=== PATIENT | female | born 1955 | race Caucasian/White ===

== ENCOUNTER 2022-01-14 11:19 | Emergency (ER) | payer BC ==
--- OUTSIDE RECORDS SUMMARY | 2022-01-14 11:24 | XMS REPORT | Continuity of Care Document ---
:1955 Author Organization [facility] t Address [address] [place] [address] Care Team Providers Name Role Phone Dunia WALKER Primary Care Physician Unavailable NAVEEN Attending Clinician Unavailable JHON BENDER Attending Clinician Unavailable Only, Cbc Test Attending Clinician Unavailable Jhon Bender DO Attending Clinician RADIOLOGY Attending Clinician Unavailable Radiology Attending Clinician Unavailable Lab, Fam Pob I Attending Clinician Unavailable Campos MARTINI Attending Clinician CAMPOS Attending Clinician Unavailable Doctor Unassigned, Name Attending Clinician Unavailable KATH TRISTAN Admitting Clinician Unavailable Payers Payer Name Policy Type Policy Number Effective Date Expiration Date S lam[place] [facility] [id number] 2021 00:00:00 [facility] [id number] 2013 00:00:00 Problems Condition Condition Condition Status Onset Resolution Last Treating Co mments Source Name Details Category Date Date Treatment Clinician Date 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 3-06 Health both lower both lower 00:00: extremitie extremitie 00 s with s with inflammati inflammati on on Left Left Disease Active 2014-10 Univers shoulder shoulder 0-07 ity of pain pain 00:00: [place] 00 Medical Branch Allergies, Adverse Reactions, Alerts Allergy Allergy Status Severity Reaction(s) Onset Inactive Treating Comm ents Source Name Type Date Date Clinician NO KNOWN Drug Active Univers ALLERGIE Class [facility] of [facility] [place] [facility] Social History Social Habit Start Date Stop Date Quantity Comments Source Exposure to Yes [facility] SARS-CoV-2 (event) Medica l Branch Alcohol intake 2021-10-06 2021-10-06 0 /d [facility] 00:00:00 00:00:00 Medical Branch Tobacco use and 2015-07-15 2015-07-15 Never used [facility] exposure 00:00:00 00:00:00 Medical Branch Sex [birth year] [place] [facility] 00:00:00 00:00:00 Smoking Status Start Date Stop Date Source Tobacco smoking consumption IN H ealt unknown Never smoker [facility] Branch Medications Ordered Filled Start Stop Current Ordering Indication Dosage Frequency Signature Comments Components Source Medication Medication Date Date Medication? Clinician (SIG) Name Name diclofenac 2018-0 Yes 75mg Take 1 Unive rs 75 mg EC 9-06 tablet by ity of tablet 00:00: mouth [place] ([facility]) Medical times Branch daily with meals. diclofenac 2018-0 Yes 75mg Take 1 Unive rs 75 mg EC 9-06 tablet by ity of tablet 00:00: mouth [place] ([facility]) Medical times Branch daily with meals. diclofenac 2018-0 Yes 75mg Take 1 Unive rs 75 mg EC 9-06 tablet by ity of tablet 00:00: mouth [place] ([facility]) Medical times Branch daily with meals. diclofenac 2018-0 Yes 75mg Take 1 Unive rs 75 mg EC 9-06 tablet by ity of tablet 00:00: mouth [place] (two) Medical times Branch daily with meals. diclofenac 2018-0 Yes 75mg Take 1 Unive rs 75 mg EC 9-06 tablet by ity of tablet 00:00: mouth 2 [place] (two) Medical times Branch daily with meals. diclofenac 2018-0 Yes 75mg Take 1 Unive rs 75 mg EC 9-06 tablet by ity of tablet 00:00: mouth 2 [place] (two) Medical times Branch daily with meals. diclofenac 2018-0 Yes 75mg Take 1 Unive rs 75 mg EC 9-06 tablet by ity of tablet 00:00: mouth 2 [place] (two) Medical times Branch daily with meals. diclofenac 2018-0 Yes 75mg Take 1 Unive rs 75 mg EC 06-14 tablet by ity of tablet 00:00: mouth 2 [place] 00 (two) Medical times Branch daily with meals. Estradiol-N Yes 1{tbl} Take 1 Un claude orethindron 3-28 tablet by ity of e Acet 00:00: mouth [place] 0.5-0.1 mg 00 daily. Medical tablet Branch Estradiol-N Yes 1{tbl} Take 1 Un claude orethindron 3-28 tablet by ity of e Acet 00:00: mouth [place] 0.5-0.1 mg 00 daily. Medical tablet Branch Estradiol-N Yes 1{tbl} Take 1 Un claude orethindron 3-28 tablet by ity of e Acet 00:00: mouth [place] 0.5-0.1 mg 00 daily. Medical tablet Branch Estradiol-N Yes 1{tbl} Take 1 Un claude orethindron 3-28 tablet by ity of e Acet 00:00: mouth [place] 0.5-0.1 mg 00 daily. Medical tablet Branch Estradiol-N Yes 1{tbl} Take 1 Un claude orethindron 3-28 tablet by ity of e Acet 00:00: mouth [place] 0.5-0.1 mg 00 daily. Medical tablet Branch Estradiol-N Yes 1{tbl} Take 1 Un claude orethindron 3-28 tablet by ity of e Acet 00:00: mouth [place] 0.5-0.1 mg 00 daily. Medical tablet Branch Estradiol-N Yes 1{tbl} Take 1 Un claude orethindron 3-28 tablet by ity of e Acet 00:00: mouth [place] 0.5-0.1 mg 00 daily. Medical tablet Branch Estradiol-N Yes 1{tbl} Take 1 Un claude orethindron 3-28 tablet by ity of e Acet 00:00: mouth [place] 0.5-0.1 mg 00 daily. Medical tablet Branch PROAIR HFA Yes Univers 90 9- ity of mcg/actuati 00:00: [place] on inhaler 00 Medical Branch PROAIR HFA Yes Univers 90 9- ity of mcg/actuati 00:00: [place] on inhaler 00 Medical Branch PROAIR HFA 2014-0 Yes Univers 90 9-21 ity of mcg/actuati 00:00: [place] on inhaler Medical Branch PROAIR HFA 2014-0 Yes Univers 90 9-21 ity of mcg/actuati 00:00: [place] on inhaler Medical Branch PROAIR HFA 2014-0 Yes Univers 90 9-21 ity of mcg/actuati 00:00: [place] on inhaler Medical Branch PROAIR HFA 2014-0 Yes Univers 90 9-21 ity of mcg/actuati 00:00: [place] on inhaler Medical Branch PROAIR HFA 2014-0 Yes Univers 90 9-21 ity of mcg/actuati 00:00: [place] on inhaler Medical Branch PROAIR HFA 2014-0 Yes Univers 90 9-21 ity of mcg/actuati 00:00: [place] on inhaler Medical Branch montelukast 0 Yes Univer s (SINGULAIR) 8-26 ity of 10 mg 00:00: [place] tablet 00 Medical Branch montelukast 2015-0 Yes Univer s (SINGULAIR) 8-26 ity of 10 mg 00:00: [place] tablet Medical Branch montelukast 2015-0 Yes Univer s (SINGULAIR) 8-26 ity of 10 mg 00:00: [place] tablet 00 Medical Branch montelukast 2015-0 Yes Univer s (SINGULAIR) 8-26 ity of 10 mg 00:00: [place] tablet Medical Branch montelukast 2015-0 Yes Univer s (SINGULAIR) 8-26 ity of 10 mg 00:00: [place] tablet Medical Branch montelukast 2015-0 Yes Univer s (SINGULAIR) 8-26 ity of 10 mg 00:00: [place] tablet Medical Branch montelukast 2015-0 Yes Univer s (SINGULAIR) 8-26 ity of 10 mg 00:00: [place] tablet 00 Medical Branch montelukast 2015-0 Yes Univer s (SINGULAIR) 8-26 ity of 10 mg 00:00: [place] tablet 00 Medical Branch Immunizations Ordered Filled Immunization Date Status Comments Sour e Immunization Name Name SARS-COV-2 COVID-19 2020-12-13 Completed Unive rsity of MODERNA VACCINE 00:00:00 [place] Med ical Branch SARS-COV-2 COVID-19 2020-12-13 Completed Unive rsity of MODERNA VACCINE 00:00:00 [facility] ical Branch SARS-COV-2 COVID-19 2020-11-15 Completed Unive rsity of MODERNA VACCINE 00:00:00 [facility] ical Branch SARS-COV-2 COVID-19 2020-11-15 Completed Unive rsity of MODERNA VACCINE 00:00:00 [facility] ical Branch SARS-COV-2 COVID-19 2020-11-15 Completed Unive rsity of MODERNA VACCINE 00:00:00 [facility] ical Branch SARS-COV-2 COVID-19 2020-11-15 Completed Unive rsity of MODERNA VACCINE [facility] Procedures Procedure Date / Time Performing Clinician Source Performed BI ULTRASOUND BREAST 2020-11-18 21:08:25 Requisition, Paper [facility] LIMITED [facility] Medical Branch BI DIAGNOSTIC 2020-11-18 20:48:58 Requisition, Paper [facility] TOMOSYNTHESIS [facility] Medical [facility] h ASSIGNMENT OF BENEFITS 2020-09-24 20:43:01 Doctor Unassigned, No [facility] Encounters Start End Encounter Admission Attending Care Care Encounter Source Date/Time Date/Time Type Type Clinicians Facility Department ID 2022-01-03 Outpatient [facility] [id number] [place] 08:15:12 [id number] [facility] 2021-12-16 Outpatient [facility] [id number] [place] 14:31:37 [facility] 2021-12-16 Outpatient [facility] [id number] [place] 14:30:31 [facility] 2021-12-14 2021-12-14 Telephonic Naveen [facility] [id number] [place] 07:45:00 09:23:20 Encounter [facility] [id number] Health [facility] 1 [id number] 2021-10-13 2021-10-13 Outpatient Pablo BENDER [facility] [id number] Univers 15:00:00 15:46:04 SG rodarte [facility] 2021-10-13 2021-10-13 Laboratory Only, Fri Cbc Test [facility] 1.2. 840.114 [id number] Univers 15:00:00 15:15:00 Only NapoleonSg FRIENDSWO 350.1.1 3.10 it[id number] [id number] [facility] AND ADULT [facility] Branch [facility] 2021-10-13 2021-10-13 Outpatient R [facility] [id number] Univers 15:00:00 15:00:00 [id number] ity of [facility] 2021-10-06 2021-10-06 Outpatient R RADIOLOGY [facility] [id number] Univers 13:15:56 23:59:00 ity of [facility] 2021-10-06 2021-10-06 Hospital Radiology [facility] [id number] Univers 13:15:56 23:59:00 Encounter [place] [id number] ity of [place] [id number] [facility] [id number] [facility] 800 Branch 2021-10-06 2021-10-06 Outpatient R RADIOLOGY [facility] [id number] Univers 00:00:00 00:00:00 [id number] ity of [facility] 2020-12-13 2020-12-13 Outpatient [facility] [id number] Univers 10:35:00 10:35:00 ity of [facility] 2020-11-18 2020-11-18 [facility] Radiology [facility] [id number] Univers 13:44:32 23:59:00 Encounter [place] [id number] ity of [place] [id number] [facility] [place] [id number] [facility] 806 Branch 2020-11-18 2020-11-18 Outpatient R RADIOLOGY [facility] [id number] Univers 14:30:00 14:30:00 [id number] ity of [facility] 2020-11-18 2020-11-18 [facility] Radiology [facility] [id number] Univers 13:43:57 13:43:57 Encounter [place] [id number] ity of [place] [id number] [facility] [address] [place] 2020-11-18 2020-11-18 Outpatient R RADIOLOGY [facility] [id number] Univers 00:00:00 00:00:00 ity of [facility] 2020-11-15 2020-11-15 Outpatient [facility] [id number] Univers 10:40:00 10:40:00 ity of [facility] 2020-10-09 2020-10-09 Laboratory Lab, Adc Fam Pob I [facility] 1.2. 840.114 [id number] Univers 13:39:07 13:59:07 Only Nishi [place] [facility] [id number] ity of [place] [id number] [place] Professio [id number] De dical [address] Office [address] 2020-10-09 2020-10-09 Outpatient R [facility] [id number] Univers 13:40:00 13:40:00 [id number] ity of [facility] 2020-10-09 2020-10-09 Outpatient R CAMPOS [facility] [id number] Univers 13:40:00 13:40:00 NISHI ity of [facility] 2020-10-09 2020-10-09 Letter Doctor NISHI 1.2.840.114 [id number] Univers 00:00:00 00:00:00 (Out) Unassigned, ROLO 350.1.13.10 ity of [place] [facility] [id number] [place] [id number] [address] 2020-09-24 2020-09-24 Hospital Radiology [facility] 1.2.840.114 [id number] Univers 14:43:50 23:59:00 Encounter [place] [id number] ity of [place] [id number] [facility] [id number] [facility] [address] [place] 2020-09-24 2020-09-24 Outpatient R RADIOLOGY [facility] [id number] Univers 00:00:00 00:00:00 ity of [facility] 2020-09-24 2020-09-24 Orders Doctor NISHI [id number] [id number] Univers 00:00:00 00:00:00 Only Unassigned, ROLO 350.1.13.10 ity of [place] [facility] 4.2.7.2.686 [place] [id number] [facility] 009 Branch Results This patient has no known results.
[2022-01-14 13:43] LABS: Absolute Lymphocytes (CBC) 1.8 K/uL (0.7-4.9); Hematocrit 39.7 % (36.0-45.0); Lymphocytes % 33.9 % (15.3-44.8); MPV 8.8 fL (7.6-11.3)
[2022-01-14 14:10] LABS: ALT/SGPT 26 U/L (12-78); AST/SGOT 14 U/L (15-37); Albumin 4.2 g/dL (3.4-5.0); Alkaline Phosphatase 60 U/L (45-117); BUN Blood Urea Nitrogen 15 mg/dL (7-18); Bicarbonate 29 mmol/L (21-32); Bilirubin Direct 0.1 mg/dL (0-0.2); Bilirubin Total 0.3 mg/dL (0.2-1.0); Glucose Level 102 mg/dL (74-106); Magnesium 2.5 mg/dL (1.8-2.4); Potassium 4.4 mmol/L (3.5-5.1); Protein, Total 8.2 g/dL (6.4-8.2); Sodium Level 139 mmol/L (136-145); Troponin High Sensitivity 4.4 pg/mL (<58.9)
[2022-01-14] MEDS ORDERED: NA CHLORIDE 0.9% 500 ML ONE (14:10)
[2022-01-14] MEDS ORDERED: KETOROLAC 30 MG/ML INJ ONE (14:10)
[2022-01-14] MEDS ORDERED: DIPHENHYDRAMINE 50 MG/ML VIAL ONE (14:10)
[2022-01-14] MEDS ORDERED: METOCLOPRAMIDE 10 MG/2mL INJ ONE (14:10)
[2022-01-14] MEDS ORDERED: NA CHLORIDE 0.9% 50 ML ONE (14:10)
--- NOTE | 2022-01-14 14:31 | RAD REPORT ---
EXAM DESCRIPTION: RAD - Chest Single View - 01/14/2022 2:13 pm CLINICAL HISTORY: COUGH COMPARISON: Two view chest 01/23/2017 TECHNIQUE: AP portable chest image was obtained 01/14/2022 2:13 pm . FINDINGS: No focal mass or consolidation. Chronic interstitial pattern not clearly different from co mparison. There may be some minimal progression. There is significant technique differences between t he 2 examinations. Heart and vasculature are normal. No measurable pleural effusion and no pneumothorax. No acute bony abnormality seen. No acute aortic findings suspected. IMPRESSION: Chronic interstitial lung pattern is present similar or minimally progressive from 2017. Baseline pattern could potentially mask a minimal interstitial infiltrate or interstitial edema.
--- NOTE | 2022-01-14 15:05 | RAD REPORT ---
EXAM DESCRIPTION: CT - Head angio - 01/14/2022 2:35 pm CLINICAL HISTORY: HEADACHEposterior TECHNIQUE: During dynamic enhancement using nonionic IV contrast, axial 1 millimeter thick images of the head were obtained. Sagittal and axial reconstruction images were generated using MIP technique and reviewed. All CT scans are performed using dose optimization technique as appropriate and may include automated exposure control or mA/KV adjustment according to patient size. COMPARISON: CT head same date FINDINGS: The left internal carotid artery at the junction of the cavernous and vertical petrous po rtions shows a 3 millimeter bulbous contour to the lateral margin. This may be atherosclerotic relate d weakening of the wall. This is not a typical location for aneurysm. No other evidence for possible aneurysm. No vascular malformation identified. Major venous sinuses are patent. No stenosis, named branch occlusion, vasculitis or other significant vascular finding identifiable. P viry has a patent anterior communicating artery. The right anterior cerebral artery A1 segment is v narendra small is a normal anatomic variant. Patient has persistent origin supplied the each posteri or cerebral artery. The large posterior communicating arteries are identified. The basilar artery is quite small in size but this would not be unusual with the posterior cerebral artery supplied by the posterior communicating arteries. IMPRESSION: No acute or suspicious findings in the posterior circulation. Normal anatomic variation would explain the small basilar artery. The 3 centimeter bulbous contour to the lateral margin of the internal carotid artery could be from a atherosclerotic weakening of the vessel wall. This is not a typical location for aneurysm. This can be monitored on subsequent imaging.
--- NOTE | 2022-01-14 15:07 | RAD REPORT ---
EXAM DESCRIPTION: CT - Head Brain Wo Cont - 01/14/2022 2:35 pm CLINICAL HISTORY: pain, posterior headache COMPARISON: No comparisons TECHNIQUE: Axial 5 mm thick images of the head were obtained without IV contrast. All CT scans are performed using dose optimization technique as appropriate and may include automated exposure control or mA/KV adjustment according to patient size. FINDINGS: No intracranial hemorrhage, mass, edema or shift of mid-line structures. No acute infarcti on changes seen. No abnormal extra-axial fluid collections. Ventricles are normal. Mastoid air cells and visualized portions of the paranasal sinuses are clear. No acute bony findings. IMPRESSION: Negative non-contrast CT head examination.
--- NOTE | 2022-01-14 15:07 | RAD REPORT ---
EXAM DESCRIPTION: CT - Neck Angio - 01/14/2022 2:35 pm CLINICAL HISTORY: PAIN, posterior headache, neck pain TECHNIQUE: During dynamic enhancement using nonionic IV contrast, axial 2 mm thick images of the nec k were obtained. Sagittal and axial reconstruction images were generated using MIP technique and revi ewed. All CT scans are performed using dose optimization technique as appropriate and may include automated exposure control or mA/KV adjustment according to patient size. COMPARISON: CT head same date, CT angio head same date FINDINGS: No aneurysm or vascular malformation identified. No carotid or vertebral dissection. No aortic arch or great vessel origin abnormality seen. Vertebral artery origins unremarkable as well . No stenosis, vasculitis or other significant carotid artery finding. No focal abnormality of either vertebral artery. Left vertebral artery is dominant. Both vertebral arteries are relatively small an d the basilar artery is small. This is all believed to be normal anatomic variation. Patient has larg e bilateral posterior communicating arteries which supply the posterior cerebral artery circulation. With this anatomic variation the basilar artery would be expected to be small in size. IMPRESSION: Negative CT angio neck examination for acute or significant finding.
--- NOTE | 2022-01-14 15:44 | ER ---
Nurse's Notes [facility] Name: Vidhi Paul Age: 66 yrs Sex: Female : 1955 Arrival Date: 01/14/2022 Time: 11:23 Bed 17 Private MD: Pamela Snell K Diagnosis: Headache;Bradycardia, unspecified Presentation: 01/14 11:39 Chief complaint: Patient states: "I started having a really bad headache yesterday, it ab2 kept me up all night and got worse this morning. I went to Dr. Snell and she sent me here for a scan." Pt states pain is on the right, back side of her head. Pt states she never gets a headache. Pt denies n/v, dizziness. Denies light and noise sensitivity. Coronavirus screen: Vaccine status: Patient reports receiving the 2nd dose of the covid vaccine. Client denies travel out of the [place] in the last 14 days. At this time, the client does not indicate any symptoms associated with coronavirus-19. Ebola Screen: Patient negative for fever greater than or equal to 101.5 degrees Fahrenheit, and additional compatible Ebola Virus Disease symptoms Patient denies exposure to infectious person. Patient denies travel to an Ebola-affected area in the 21 days before illness onset. No symptoms or risks identified at this time. Initial Sepsis Screen: Does the patient meet any 2 criteria? No. Patient's initial sepsis screen is negative. Does the patient have a suspected source of infection? No. Patient's initial sepsis screen is negative. Risk Assessment: Do you want to hurt yourself or someone else? Patient reports no desire to harm self or others. Onset of symptoms is unknown. 11:39 Method Of Arrival: Ambulatory ab2 11:42 Acuity: OLIVER 3 ab2 Triage Assessment: 11:42 Headache History: Denies prior headaches. General: Appears in no apparent distress. ab2 uncomfortable, Behavior is calm, cooperative, appropriate for age. Pain: Complains of pain in head Pain currently is 8 out of 10 on a pain scale. Pain began 1 day ago. Also complains of sleeplessness. Neuro: Level of Consciousness is awake, alert, obeys commands, Oriented to person, place, time, situation, Appropriate for age Production Controller are equal bilaterally Moves all extremities. Gait is steady, Speech is normal, Facial symmetry appears normal, Pupils are PERRLA, Intact Reports headache. Cardiovascular: No deficits noted. Denies chest pain, shortness of breath, Patient's skin is warm and dry. Respiratory: No deficits noted. Airway is patent Respiratory effort is even, unlabored, Respiratory pattern is regular, symmetrical. GI: No deficits noted. No signs and/or symptoms were reported involving the gastrointestinal system. : No deficits noted. No signs and/or symptoms were reported regarding the genitourinary system. Derm: Skin is intact, Skin is pink, warm \\T\\ dry. Historical: - Allergies: 11:42 No Known Allergies; ab2 - PMHx: 11:42 Asthma; ab2 - PSHx: 11:42 None; ab2 - Immunization history:: Adult Immunizations up to date. - Social history:: Smoking status: Patient denies any tobacco usage or history of. - Family history:: not pertinent. Screenin:35 Abuse screen: Denies threats or abuse. Denies injuries from another. Nutritional ww screening: No deficits noted. Tuberculosis screening: No symptoms or risk factors identified. Fall Risk None identified. Assessment: 14:16 General: Appears in no apparent distress. comfortable, slender, well groomed, Behavior ph is calm, cooperative, appropriate for age, Denies fever, feeling ill. Pain: Complains of pain in head. Neuro: Level of Consciousness is awake, alert, obeys commands, Oriented to person, place, time, situation, Reports headache in right occipital area, Denies weakness blurred vision dizziness. Cardiovascular: Capillary refill < 3 seconds in bilateral fingers Patient's skin is warm and dry. Respiratory: Airway is patent Respiratory effort is even, unlabored, Respiratory pattern is regular, symmetrical. GI: No signs and/or symptoms were reported involving the gastrointestinal system. Derm: Skin is intact, is healthy with good turgor, Skin is pink, warm \\T\\ dry. 14:18 Reassessment: Pt taken to CT via stretcher. ph 15:33 Reassessment: Patient appears in no apparent distress at this time. Patient and/or ph family updated on plan of care and expected duration. Pain level reassessed. Patient is alert, oriented x 3, equal unlabored respirations, skin warm/dry/pink. 16:24 Reassessment: Patient appears in no apparent distress at this time. Patient and/or ph family updated on plan of care and expected duration. Pain level reassessed. Patient is alert, oriented x 3, equal unlabored respirations, skin warm/dry/pink. Patient states symptoms have improved. Vital Signs: 11:39 BP 141 / 63; Pulse 58; Resp 17; Temp 98.2; Pulse Ox 99% on R/A; Weight 68.04 kg; Height ab2 5 ft. 7 in. (170.18 cm); Pain 8/10; 14:17 BP 128 / 53; Pulse 59; Resp 18; Pulse Ox 98% on R/A; ph 15:33 BP 116 / 59; Pulse 49; Resp 18; Pulse Ox 98% on R/A; ph 16:24 BP 112 / 56; Pulse 51; Resp 18; Temp 98.2; Pulse Ox 99% on R/A; ph 11:39 Body Mass Index 23.49 (68.04 kg, 170.18 cm) ab2 Kanika Coma Score: 15:41 Eye Response: spontaneous(4). Verbal Response: oriented(5). Motor Response: obeys abilio commands(6). Total: 15. ED Course: 11:23 Patient arrived in ED. mr 11:24 Pamela Snell MD is Private Physician. mr 11:42 Triage completed. ab2 11:43 Arm band placed on right wrist. ab2 13:13 Francisco Hodges MD is Attending Physician. abilio 13:35 Patient has correct armband on for positive identification. Bed in low position. Call ww light in reach. Side rails up X 1. Pulse ox on. NIBP on. 13:35 Inserted saline lock: 20 gauge in left antecubital area, using aseptic technique. Blood ww collected. 13:38 Christina Valentine, RN is Primary Nurse. ph 14:15 XRAY Chest (1 view) In Process Unspecified. EDMS 14:37 CT Head Angio In Process Unspecified. EDMS 14:37 CT Neck Angio In Process Unspecified. EDMS 14:37 Head Brain Wo Cont In Process Unspecified. EDMS 14:45 EKG completed in triage. Results shown to MD. eh3 15:43 Pamela Snell MD is Referral Physician. abilio 15:43 Lion Medina MD is Referral Physician. abilio 16:25 No provider procedures requiring assistance completed. IV discontinued, intact, ph bleeding controlled, No redness/swelling at site. Pressure dressing applied. Administered Medications: 14:45 Drug: NS 0.9% 500 ml Route: IV; Rate: bolus; Site: left antecubital; ph 16:24 Follow up: Response: No adverse reaction; IV Status: Completed infusion; IV Intake: ph 500ml 14:45 Drug: Benadryl (diphenhydrAMINE) 50 mg Route: IVP; Site: left antecubital; ph 16:23 Follow up: Response: No adverse reaction ph 14:45 Drug: Reglan (metoCLOPramide) 10 mg Route: IVP; Site: left antecubital; ph 16:24 Follow up: Response: No adverse reaction ph 14:46 Drug: TORadol (ketorolac) 30 mg Route: IVP; Site: left antecubital; ph 16:24 Follow up: Response: No adverse reaction; Pain is decreased ph Intake: 16:24 IV: 500ml; Total: 500ml. ph Outcome: 15:44 Discharge ordered by . abilio 16:25 Discharged to home ambulatory, with significant other. ph 16:25 Condition: good 16:25 Discharge instructions given to patient, significant other, Instructed on discharge instructions, follow up and referral plans. medication usage, Demonstrated understanding of instructions, follow-up care, medications, Prescriptions given X 2. 16:32 Patient left the ED. ph Signatures: Dispatcher [employer] EDMA Francisco Hodges MD MD cha Rivera, Christina Dillard RN RN Lisa Rolon RN RN Paula, Adrián glover Marcella Valentine 3 Corrections: (The following items were deleted from the chart) 11:42 11:39 Acuity: OLIVER 4 ab2 ab2
--- NOTE | 2022-01-14 15:44 | EDPHYS ---
Physician Documentation [facility] Name: Vidhi Paul Age: 66 yrs Sex: Female : 1955 Arrival Date: 01/14/2022 Time: 11:23 Bed 17 Private MD: Pamela Snell K ED Physician Francisco Hodges HPI: 01/14 15:38 This 66 yrs old Female presents to ER via Ambulatory with complaints of abilio Headache. 15:38 The patient complains of pain to the right side of the back of head, right temporal abilio area, right occipital area and right base of the skull. The patient describes the headache as aching, constant. Onset: The symptoms/episode began/occurred 1 day(s) ago. Associated signs and symptoms: The patient has no apparent associated signs or symptoms. Severity of symptoms: At its worst the pain was moderate, in the emergency department the pain is unchanged. Headache History: The patient has had previous headaches and this one is different than previous episodes. The symptoms are alleviated by nothing. the symptoms are aggravated by nothing. The patient has not experienced similar symptoms in the past. Historical: - Allergies: 11:42 No Known Allergies; ab2 - PMHx: 11:42 Asthma; ab2 - PSHx: 11:42 None; ab2 - Immunization history:: Adult Immunizations up to date. - Social history:: Smoking status: Patient denies any tobacco usage or history of. - Family history:: not pertinent. ROS: 15:38 Constitutional: Negative for fever, chills, and weight loss, Eyes: Negative for injury, abilio pain, redness, and discharge, ENT: Negative for injury, pain, and discharge, Neck: Negative for injury, pain, and swelling, Cardiovascular: Negative for chest pain, palpitations, and edema, Respiratory: Negative for shortness of breath, cough, wheezing, and pleuritic chest pain, Abdomen/GI: Negative for abdominal pain, nausea, vomiting, diarrhea, and constipation, Back: Negative for injury and pain, : Negative for injury, bleeding, discharge, and swelling, MS/Extremity: Negative for injury and deformity, Skin: Negative for injury, rash, and discoloration, Psych: Negative for depression, anxiety, suicide ideation, homicidal ideation, and hallucinations, Allergy/Immunology: Negative for hives, rash, and allergies, Endocrine: Negative for neck swelling, polydipsia, polyuria, polyphagia, and marked weight changes, Hematologic/Lymphatic: Negative for swollen nodes, abnormal bleeding, and unusual bruising. 15:38 Neuro: Positive for headache. Exam: 15:38 Constitutional: This is a well developed, well nourished patient who is awake, alert, abilio and in no acute distress. Head/Face: Normocephalic, atraumatic. Eyes: Pupils equal round and reactive to light, extra-ocular motions intact. Lids and lashes normal. Conjunctiva and sclera are non-icteric and not injected. Cornea within normal limits. Periorbital areas with no swelling, redness, or edema. ENT: Nares patent. No nasal discharge, no septal abnormalities noted. Tympanic membranes are normal and external auditory canals are clear. Oropharynx with no redness, swelling, or masses, exudates, or evidence of obstruction, uvula midline. Mucous membranes moist. Neck: Trachea midline, no thyromegaly or masses palpated, and no cervical lymphadenopathy. Supple, full range of motion without nuchal rigidity, or vertebral point tenderness. No Meningismus. Chest/axilla: Normal chest wall appearance and motion. Nontender with no deformity. No lesions are appreciated. Cardiovascular: Regular rate and rhythm with a normal S1 and S2. No gallops, murmurs, or rubs. Normal PMI, no JVD. No pulse deficits. Respiratory: Lungs have equal breath sounds bilaterally, clear to auscultation and percussion. No rales, rhonchi or wheezes noted. No increased work of breathing, no retractions or nasal flaring. Abdomen/GI: Soft, non-tender, with normal bowel sounds. No distension or tympany. No guarding or rebound. No evidence of tenderness throughout. Back: No spinal tenderness. No costovertebral tenderness. Full range of motion. Female : Normal external genitalia. Skin: Warm, dry with normal turgor. Normal color with no rashes, no lesions, and no evidence of cellulitis. MS/ Extremity: Pulses equal, no cyanosis. Neurovascular intact. Full, normal range of motion. Neuro: Awake and alert, GCS 15, oriented to person, place, time, and situation. Cranial nerves II-XII grossly intact. Motor strength 5/5 in all extremities. Sensory grossly intact. Cerebellar exam normal. Normal gait. Psych: Awake, alert, with orientation to person, place and time. Behavior, mood, and affect are within normal limits. 15:38 Neck: ROM/movement: is normal, no acute changes, pain, is not appreciated, limited range of motion, is not appreciated, Meningeal signs: are not present, Kernig's sign is negative, Brudzinski's sign is negative, nuchal rigidity, is not appreciated. 15:38 ECG was reviewed by the Attending Physician. Vital Signs: 11:39 BP 141 / 63; Pulse 58; Resp 17; Temp 98.2; Pulse Ox 99% on R/A; Weight 68.04 kg; Height ab2 5 ft. 7 in. (170.18 cm); Pain 8/10; 14:17 BP 128 / 53; Pulse 59; Resp 18; Pulse Ox 98% on R/A; ph 15:33 BP 116 / 59; Pulse 49; Resp 18; Pulse Ox 98% on R/A; ph 16:24 BP 112 / 56; Pulse 51; Resp 18; Temp 98.2; Pulse Ox 99% on R/A; ph 11:39 Body Mass Index 23.49 (68.04 kg, 170.18 cm) ab2 Kanika Coma Score: 15:41 Eye Response: spontaneous(4). Verbal Response: oriented(5). Motor Response: obeys abilio commands(6). Total: 15. MDM: 13:13 Patient medically screened. abilio 15:41 Differential diagnosis: cluster headache, cerebral vascular accident, hyponatremia, abilio migraine, neoplasm, subdural hematoma, temporal arteritis, tension headache. Data reviewed: vital signs, nurses notes, lab test result(s), EKG, radiologic studies, CT scan, plain films. Data interpreted: shelter monitor: rate is 49 beats/min, rhythm is regular, Pulse oximetry: on room air is 98 %. Test interpretation: by ED physician or midlevel provider: ECG, plain radiologic studies. Counseling: I had a detailed discussion with the patient and/or guardian regarding: the historical points, exam findings, and any diagnostic results supporting the discharge/admit diagnosis, lab results, radiology results, the need for outpatient follow up, for definitive care, a family practitioner, a neurologist. 01/14 13:20 Order name: Basic Metabolic Panel; Complete Time: 15:19 [facility] 01/14 13:20 Order name: CBC with Diff; Complete Time: 15:19 [facility] 01/14 13:20 Order name: LFT's; Complete Time: 15:19 [facility] 01/14 13:20 Order name: Magnesium; Complete Time: 15:19 [facility] 01/14 13:20 Order name: Troponin HS; Complete Time: 15:19 [facility] 01/14 13:20 Order name: Urine Culture [facility] 01/14 13:20 Order name: XRAY Chest (1 view); Complete Time: 15:19 [facility] 01/14 13:20 Order name: CT Head Angio; Complete Time: 15:19 [facility] 01/14 13:20 Order name: CT Neck Angio; Complete Time: 15:19 [facility] 01/14 14:17 Order name: Head Brain Wo Cont; Complete Time: 15:19 EDMS 01/14 16:18 Order name: Urine Dipstick-Ancillary [facility] 01/14 13:20 Order name: EKG; Complete Time: 13:21 [facility] 01/14 13:20 Order name: Cardiac monitoring; Complete Time: 14:45 [facility] 01/14 13:20 Order name: EKG - Nurse/Tech; Complete Time: 14:45 [facility] 01/14 13:20 Order name: IV Saline Lock; Complete Time: 13:35 [facility] 01/14 13:20 Order name: Labs collected and sent; Complete Time: 13:35 [facility] 01/14 13:20 Order name: O2 Per Protocol; Complete Time: 13:35 abilio 01/14 13:20 Order name: O2 Sat Monitoring; Complete Time: 13:35 [facility] 01/14 13:20 Order name: Urine Dipstick-Ancillary (obtain specimen); Complete Time: 16:23 [facility] 01/14 15:48 Order name: Misc. Order: please get ua; Complete Time: 16:23 [facility] EC:38 Rate is 57 beats/min. Rhythm is regular. QRS [place] is Normal. MT interval is normal. QRS abilio interval is normal. QT interval is normal. No Q waves. T waves are Normal. No ST changes noted. Clinical impression: Sinus bradycardia and No evidence of ischemia. Interpreted by me. Reviewed by me. Administered Medications: 14:45 Drug: NS 0.9% 500 ml Route: IV; Rate: bolus; Site: left antecubital; ph 16:24 Follow up: Response: No adverse reaction; IV Status: Completed infusion; IV Intake: ph 500ml 14:45 Drug: Benadryl (diphenhydrAMINE) 50 mg Route: IVP; Site: left antecubital; ph 16:23 Follow up: Response: No adverse reaction ph 14:45 Drug: Reglan (metoCLOPramide) 10 mg Route: IVP; Site: left antecubital; ph 16:24 Follow up: Response: No adverse reaction ph 14:46 Drug: TORadol (ketorolac) 30 mg Route: IVP; Site: left antecubital; ph 16:24 Follow up: Response: No adverse reaction; Pain is decreased ph Disposition Summary: 01/14/22 15:44 Discharge Ordered Location: Home abilio Problem: new abilio Symptoms: have improved abilio Condition: Stable abilio Diagnosis - Headache abilio - Bradycardia, unspecified abilio Followup: abilio - With: Pamela Snell MD - When: 2 - 3 days - Reason: Recheck today's complaints, Continuance of care, Re-evaluation by your physician Followup: abilio - With: Lion Medina MD - When: 2 - 3 days - Reason: Recheck today's complaints, Re-evaluation by your physician Discharge Instructions: - Discharge Summary Sheet abilio - Bradycardia, Adult abilio - General Headache Without Cause abilio - General Headache Without Cause, [id number] abilio Forms: - Medication Reconciliation Form abilio - Thank You Letter abilio - Antibiotic Education abilio - Prescription Opioid Use abilio Prescriptions: - Zofran 4 mg Oral Tablet - take 1 tablet by ORAL route every 12 hours As needed; 20 tablet; Refills: 0, abilio Product Selection Permitted - Fioricet with Codeine [id number] mg Oral capsule - take 1 capsule by ORAL route every 4 hours as needed not to exceed 6 capsules abilio per 24hrs; 20 capsule; Refills: 0, Product Selection Permitted Signatures: Dispatcher [employer] Francisco Neely MD MD cha Hall, Patricia, RN RN Adrián Benz
[2022-01-14 16:17] LABS: Urine Blood Negative (Negative); Urine Glucose Negative (Negative); Urine Protein Negative (Negative)
[2022-01-14 20:40] VITALS: TEMP 98.2
[2022-01-14 20:44] VITALS: BP 112/56; O2SAT 99
--- NOTE | 2022-01-17 09:44 | EKG ---
Test Date: 2022-01-14 Test Time: 14:40:04 National Facilities Manager: TERESA MEASUREMENT RESULTS: Intervals: Rate: 57 MI: 140 QRSD: 84 QT: 444 QTc: 432 Plato: P: 58 MI: 140 QRS: 76 T: 53 INTERPRETIVE STATEMENTS: Sinus bradycardia Otherwise normal ECG Compared to ECG 04/08/2013 15:37:21 No significant changes Electronically Signed On 01-17-22 09:36:25 CDT by Tj Melendez
== END 2022-01-14 16:32 | disposition home or self-care (01) ==
LOC: ER 11:19
DX: R51.9 Headache, unspecified (principal); R00.1 Bradycardia, unspecified
CPT/HCPCS: 96361; 93005; 87088; 85025; 87086; 80048; 36415; 83735; 80076; 81003; 84484; 70450; 70496; 70498; 71045; 96375; 96374; 99284; Q9967; J2765; J1200; J7040